=== PATIENT | male | born 1950 | race Caucasian/White ===

== ENCOUNTER 2020-08-25 11:52 | Day surgery (SDC) | payer MEDICARE ==
[2020-08-23 13:06] LABS: BASOPHILS % (AUTO) 0.7 % (0-1); EOSINOPHILS # (AUTO) 0.2 X10'3 (0-0.9); EOSINOPHILS % (AUTO) 3.1 % (0-6); HEMATOCRIT 41.8 % (42.0-52.0); HEMOGLOBIN 13.8 g/dl (14.0-17.9); LYMPHOCYTES # (AUTO) 1.2 X10'3 (1.1-4.8); LYMPHOCYTES % (AUTO) 17.9 % (21-51); MEAN CORPUSCULAR HEMOGLOBIN 28.8 PG (27.0-31.0); MEAN CORPUSCULAR HGB CONC 32.9 g/dL (33.0-36.5); MEAN CORPUSCULAR VOLUME 87.5 FL (78-98); MEAN PLATELET VOLUME 8.9 FL (7.4-10.4); MONOCYTES # (AUTO) 0.3 X10'3 (0-0.9); MONOCYTES % (AUTO) 5.2 % (2-12); NEUTROPHILS # (AUTO) 4.7 X10'3 (1.8-7.7); NEUTROPHILS % (AUTO) 73.1 % (42-75); PLATELET COUNT 228 X10'3 (140-440); RED BLOOD COUNT 4.78 X10'6 (4.70-6.10); RED CELL DISTRIBUTION WIDTH 15.4 % (11.5-14.5); WHITE BLOOD COUNT 6.4 X10'3 (4.5-11.0)
[2020-08-23 13:17] LABS: PARTIAL THROMBOPLASTIN TIME 32 SECONDS (22-32)
[2020-08-23 13:21] LABS: ALANINE AMINOTRANSFERASE 28 U/L (12-78); ALBUMIN 3.7 G/DL (3.4-5.0); ALBUMIN/GLOBULIN RATIO 0.8 (1.1-1.5); ALKALINE PHOSPHATASE 83 IU/L (46-116); ANION GAP 12 (8-16); ASPARTATE AMINO TRANSFERASE 17 U/L (10-37); BILIRUBIN,TOTAL 0.6 MG/DL (0.1-1.0); BLOOD UREA NITROGEN 18 MG/DL (7-18); BUN/CREATININE RATIO 11.3 (5.4-32.0); CHLORIDE 106 MMOL/L (99-107); CREATININE 1.59 MG/DL (0.60-1.10); GLUCOSE 227 MG/DL (70-104); POTASSIUM 4.5 MMOL/L (3.5-5.1); SODIUM 140 MMOL/L (135-145); TOTAL CARBON DIOXIDE 22.3 MMOL/L (24-32); TOTAL PROTEIN 8.3 G/DL (6.4-8.2); eGFR 44 ML/MIN
[2020-08-25] VITALS (10 sets, daily range): BP systolic 97–145; BP diastolic 56–77
[~2020-08-25] VITALS: Ht 170.2 cm; Wt 52.6 kg
[2020-08-25] MEDS ORDERED: METF500T PO (12:29)
[2020-08-25] MEDS ORDERED: ASPI-1265 PO (12:29)
[2020-08-25] MEDS ORDERED: CLOP75TA15 PO (12:29)
[2020-08-25] MEDS ORDERED: ATOR40TA PO (12:29)
[2020-08-25] MEDS ORDERED: nitroGLYCERIN 0.4mg SUBLingual tab SL PRN (12:35)
[2020-08-25] MEDS ORDERED: LORazepam 0.5 MG tablet PO PRN (12:35)
[2020-08-25] MEDS ORDERED: dextrose ORAL solution 15 GM/59 ML bottle PO PRN ×2 (12:35)
[2020-08-25] MEDS ORDERED: dextrose 50%-water 50ml dispensing syringe IV PRN ×2 (12:35)
[2020-08-25] MEDS ORDERED: insulin Lispro (HumaLOG) vial - multi-dose SQ SCH (12:35)
[2020-08-25] MEDS ORDERED: glucagon, human recombinant 1mg kit SUBCUT PRN (12:35)
[2020-08-25] MEDS ORDERED: normal saline 1,000 ML IV SCH (12:35)
[2020-08-25] MEDS ORDERED: diphenhydrAMINE 25mg capsule PO PRN (12:35)
[2020-08-25] MEDS ORDERED: LIDOcaine 1% (10mg/ml)w/preservative injection 20ml MDV ONE (14:08)
[2020-08-25] MEDS ORDERED: fentaNYL/PF 50MCG/1 ML 2ML syringe ONE (14:08)
[2020-08-25] MEDS ORDERED: iohexol 350MG/ML 100ml bottle IV ONE (14:08)
[2020-08-25] MEDS ORDERED: midazolam 2 mg/2 ml injection ONE (14:08)
[2020-08-25] MEDS ORDERED: iohexol 350 MG/ML 50ML vial IV ONE (14:08)
[2020-08-25 17:27] LABS: HEMOGLOBIN A1C 7.1 % (4.5-6.2)
[2020-08-25] MEDS ORDERED: insulin glargine (Lantus) pen - multi-dose SQ SCH (21:00)
== END 2020-08-25 20:30 | disposition home or self-care (01) ==
LOC: SSTAY O 11:52
PROVIDERS: ATTEND Internal Medicine Cardiovascular Disease
DX: R94.39 Abnormal result of other cardiovascular function study (principal); T82.855A Stenosis of coronary artery stent, initial encounter; I25.119 Atherosclerotic heart disease of native coronary artery with unspecified angina pectoris; I34.1 Nonrheumatic mitral (valve) prolapse; I10 Essential (primary) hypertension; E78.5 Hyperlipidemia, unspecified; E11.9 Type 2 diabetes mellitus without complications; E66.9 Obesity, unspecified; Z68.1 Body mass index [BMI] 19.9 or less, adult; G47.30 Sleep apnea, unspecified; Z79.01 Long term (current) use of anticoagulants; Z79.899 Other long term (current) drug therapy; Z88.5 Allergy status to narcotic agent; Z88.8 Allergy status to other drugs, medicaments and biological substances; Z87.891 Personal history of nicotine dependence; Z79.82 Long term (current) use of aspirin; Y83.8 Other surgical procedures as the cause of abnormal reaction of the patient, or of later complication, without mention of misadventure at the time of the procedure; Y92.89 Other specified places as the place of occurrence of the external cause
CPT/HCPCS: 36415; 71046; 80053; 82948; 83036; 85025; 85610; 85730; 93005; 93458; 99152; 99153; C1760; C1769; J1644; J1815; J2001; J2250; J3010; J7030; Q0163; Q9967; A4620; A6258

== ENCOUNTER 2021-02-10 15:44 | Outpatient (CLI) | payer MEDICARE ==
[~2021-02-10] VITALS: Ht 170.2 cm; Wt 120.2 kg
[~2021-02-10 15:44] MED LIST: ASPI-1265 PO; ATOR40TA PO; CLOP75TA15 PO; METF500T PO
[2021-02-10 16:08] LABS: TOTAL HEMOGLOBIN 7.8 G/dl (14.0-18.0)
[2021-02-10] MEDS ORDERED: albuterol 2.5 MG/3 ML nebule NEB PRN (16:30)
[2021-02-11] MEDS ORDERED: NITR0.4T48 SL (16:27)
[2021-02-11] MEDS ORDERED: GLIP1TAB5 PO (16:27)
== END 2021-02-10 23:59 | disposition home or self-care (01) ==
LOC: RT 15:44
PROVIDERS: ATTEND Internal Medicine Cardiovascular Disease
DX: R94.2 Abnormal results of pulmonary function studies (principal); D64.9 Anemia, unspecified; R06.02 Shortness of breath
CPT/HCPCS: 85018; 94010; 94727; 94729

== ENCOUNTER 2021-04-14 09:08 | Day surgery (SDC) | payer MEDICARE ==
[~2021-04-14] VITALS: Ht 170.2 cm; Wt 106.0 kg
[~2021-04-14 09:08] MED LIST changes: -CLOP75TA15 PO; +CLOP75TA34 PO; +GLIP1TAB5 PO; -METF500T PO; +NITR0.4T48 SL
[2021-04-14 09:38] VITALS: BP 117/71
[2021-04-14] MEDS ORDERED: sodium bicarbonate (8.4%) inj. 150 ML in dextrose 5%-water 1,000 ML IV ONE (09:45)
[2021-04-14] MEDS ORDERED: SILD100T PO (10:42)
[2021-04-14] MEDS ORDERED: iohexol 300mg/ml 100ml inj. ONE (11:59)
[2021-04-14 13:30] VITALS: BP 113/68
--- NOTE | 2021-04-14 14:15 | NUR ---
Spoke with Cindy ADAMS from [facility]. She spoke with Dr. Weeks and said the patient's IV infusion can go in over 3 hours instead of 6.
[2021-04-14 16:35] VITALS: BP 118/70
== END 2021-04-14 16:35 | disposition home or self-care (01) ==
LOC: SSTAY O 09:08
PROVIDERS: ATTEND Internal Medicine
DX: C18.7 Malignant neoplasm of sigmoid colon (principal); R91.8 Other nonspecific abnormal finding of lung field; J43.9 Emphysema, unspecified; N13.30 Unspecified hydronephrosis; N20.2 Calculus of kidney with calculus of ureter; Z90.49 Acquired absence of other specified parts of digestive tract; Z88.0 Allergy status to penicillin; Z88.5 Allergy status to narcotic agent
CPT/HCPCS: 71260; 74177; Q9967

== ENCOUNTER 2021-07-11 08:34 | Outpatient (CLI) | payer MEDICARE ==
[~2021-07-11 08:34] MED LIST changes: +SILD100T PO
[2021-07-11] MEDS ORDERED: iohexol 300mg/ml 100ml inj. ONE (08:51)
[2021-07-11] MEDS ORDERED: MESSAGE TO NURSING PO NR (10:00)
== END 2021-07-11 23:59 | disposition home or self-care (01) ==
LOC: 64 CT 08:34
PROVIDERS: ATTEND Internal Medicine
DX: C18.7 Malignant neoplasm of sigmoid colon (principal); K76.89 Other specified diseases of liver; K76.0 Fatty (change of) liver, not elsewhere classified; D73.4 Cyst of spleen; N20.0 Calculus of kidney; J43.2 Centrilobular emphysema; R91.1 Solitary pulmonary nodule; D17.79 Benign lipomatous neoplasm of other sites
CPT/HCPCS: 71260; 74177; Q9967

== ENCOUNTER 2024-01-23 09:02 | Day surgery (SDC) | payer MEDICARE ==
[2024-01-23] VITALS (12 sets, daily range): BP systolic 102–134; BP diastolic 47–83; PULSE 70–79; RESP 11–18; TEMP 97.6; O2SAT 95–99
[~2024-01-23] VITALS: Ht 172.7 cm; Wt 103.2 kg
[2024-01-23] MEDS ORDERED: nitroGLYCERIN 0.4mg SUBLingual tab SL PRN ×2 (09:30→12:45)
[2024-01-23] MEDS ORDERED: INSULIN LISPRO 100 UNIT/ML INSULN.PEN MULTI-DOSE SQ SCH (09:30)
[2024-01-23] MEDS ORDERED: MESSAGE TO PHARMACY PO ONE (09:30)
[2024-01-23] MEDS ORDERED: DEXTROSE 15 GM of carb/4 tabs (each vial/BOTTLE has 4 tablets) PO PRN ×2 (09:30)
[2024-01-23] MEDS ORDERED: glucagon, human recombinant 1mg kit SUBCUT PRN (09:30)
[2024-01-23] MEDS ORDERED: dextrose 50%-water 50ml dispensing syringe IV PRN ×2 (09:30)
[2024-01-23 09:56] LABS: BASOPHILS % (AUTO) 0.7 % (0-1); EOSINOPHILS # (AUTO) 0.3 X10'3 (0-0.9); EOSINOPHILS % (AUTO) 4.5 % (0-6); HEMATOCRIT 39.5 % (42.0-52.0); HEMOGLOBIN 13.3 g/dl (14.0-17.9); LYMPHOCYTES # (AUTO) 0.8 X10'3 (1.1-4.8); LYMPHOCYTES % (AUTO) 10.7 % (21-51); MEAN CORPUSCULAR HEMOGLOBIN 30.2 PG (27.0-31.0); MEAN CORPUSCULAR HGB CONC 33.6 g/dL (33.0-36.5); MEAN PLATELET VOLUME 8.9 FL (7.4-10.4); MONOCYTES # (AUTO) 0.5 X10'3 (0-0.9); MONOCYTES % (AUTO) 6.8 % (2-12); NEUTROPHILS # (AUTO) 5.5 X10'3 (1.8-7.7); NEUTROPHILS % (AUTO) 77.3 % (42-75); PLATELET COUNT 185 X10'3 (140-440); RED BLOOD COUNT 4.39 X10'6 (4.70-6.10); RED CELL DISTRIBUTION WIDTH 15.3 % (11.5-14.5); WHITE BLOOD COUNT 7.1 X10'3 (4.5-11.0)
[2024-01-23 10:05] LABS: ALBUMIN 3.4 G/DL (3.4-5.0); ANION GAP 12 (8-16); BLOOD UREA NITROGEN 40 MG/DL (7-18); BUN/CREATININE RATIO 16.4 (10.0-20.0); CALCIUM 9.4 MG/DL (8.5-10.1); CHLORIDE 107 MMOL/L (99-107); CREATININE 2.44 MG/DL (0.60-1.10); GLUCOSE 157 MG/DL (70-104); POTASSIUM 4.3 MMOL/L (3.5-5.1); SODIUM 142 MMOL/L (135-145); eCRCL 27 ML/MIN; eGFR 26 ML/MIN
[2024-01-23 10:09] LABS: APTT 37 SECONDS (22-32); PROTHROMBIN TIME 10.6 SECONDS (9.0-12.0)
[2024-01-23] MEDS ORDERED: FERR-121 PO (10:19)
[2024-01-23] MEDS ORDERED: midazolam 1 mg/ML 2ml injection ONE (11:07)
[2024-01-23] MEDS ORDERED: LIDOcaine 1% 30ml preserv. free vial ONE (11:07)
[2024-01-23] MEDS ORDERED: fentaNYL/PF 50MCG/1 ML 2ML syringe ONE ×2 (11:07→11:44)
[2024-01-23] MEDS ORDERED: iohexol 350MG/ML 100ml bottle IV ONE (11:08)
[2024-01-23] MEDS ORDERED: iohexol 350 MG/ML 50ML vial IV ONE ×2 (11:08→11:52)
[2024-01-23] MEDS: LORazepam 0.5 MG tablet PO PRN (11:11)
[2024-01-23] MEDS: diphenhydrAMINE 25mg capsule PO PRN (11:12)
[2024-01-23] MEDS: normal saline 1,000 ML IV SCH (11:12)
[2024-01-23 12:10] LABS: ISTAT HGB ART 10.2 g/dl (14.0-17.9); ISTAT Hct ART 30 %PCV (42-52); ISTAT O2 SATURATION ARTERIAL 95 % (95-98); ISTAT SOURCE ART
[2024-01-23] MEDS ORDERED: OXAZEpam 15mg capsule PO PRN (12:45)
[2024-01-23] MEDS ORDERED: normal saline 1000ml 1,000 ML IV SCH (12:45)
[2024-01-23] MEDS ORDERED: ondansetron/PF 4mg/2ml inj IV PRN (12:45)
[2024-01-23] MEDS ORDERED: proCHLORperazine 10 MG/2 ml inj IV PRN (12:45)
[2024-01-23] MEDS ORDERED: HYDROcodone/acetaminophen 5mg/325mg tablet PO PRN (12:45)
[2024-01-23] MEDS ORDERED: HYDROcodone/acetaminophen 10/325mg tab PO PRN (12:45)
[2024-01-23 13:17] LABS: ISTAT HGB MIX 10.2 g/dl (14.0-17.9); ISTAT Hct MIX 30 %PCV (42-52); ISTAT O2 SATURATION MIX VENOUS 63 % (60-80); ISTAT SOURCE VEN
[2024-01-23 19:16] LABS: HEMOGLOBIN A1C 5.9 % (4.5-6.2)
[2024-01-23] MEDS ORDERED: insulin glargine (Lantus) pen - multi-dose SQ SCH (21:00)
== END 2024-01-23 17:55 | disposition home or self-care (01) ==
LOC: CATH LAB 09:02 → SSTAY O 17:55
PROVIDERS: ATTEND Internal Medicine Cardiovascular Disease
DX: I25.119 Atherosclerotic heart disease of native coronary artery with unspecified angina pectoris (principal); E11.40 Type 2 diabetes mellitus with diabetic neuropathy, unspecified; M19.90 Unspecified osteoarthritis, unspecified site; I12.9 Hypertensive chronic kidney disease with stage 1 through stage 4 chronic kidney disease, or unspecified chronic kidney disease; N18.30 Chronic kidney disease, stage 3 unspecified; Z88.0 Allergy status to penicillin; Z88.8 Allergy status to other drugs, medicaments and biological substances; Z88.5 Allergy status to narcotic agent; Z79.84 Long term (current) use of oral hypoglycemic drugs; Z79.899 Other long term (current) drug therapy; Z79.01 Long term (current) use of anticoagulants
CPT/HCPCS: 36415; 71046; 80048; 82803; 82948; 83036; 83880; 85014; 85025; 85610; 85730; 93005; 93460; 99152; 99153; J1644; J1815; J2250; J3010; J3490; J7030; Q0163; Q9967; A6258; C1751; C1760